=== PATIENT | male | born 1960 | race African-American/Black ===

== ENCOUNTER 2017-10-13 05:15 | Inpatient (IN) | payer OTHER ==
[2017-10-13] VITALS (13 sets, daily range): BP systolic 107–132; BP diastolic 63–85
[~2017-10-13] VITALS: Ht 188 cm; Wt 102.5 kg
[2017-10-13] MEDS ORDERED: BENAZEPRIL-HCT1 EAC2 ORAL (06:12)
[2017-10-13] MEDS ORDERED: Vancomycin 1gm inj IVPB ONE (06:47)
[2017-10-13] MEDS ORDERED: Heparin 5000 units/ml inj ONE (06:48)
[2017-10-13] MEDS ORDERED: Bupivacaine 0.5% Inj 30 ml vial INJ ONE (06:48)
[2017-10-13] MEDS ORDERED: Thrombin 5000 units TOPIC ONE ×2 (06:48→06:50)
[2017-10-13] MEDS ORDERED: Bacitracin 50000 Units Vial ONE (06:49)
[2017-10-13] MEDS ORDERED: Lidocaine 1% Plain 30 ml INJ ONE (06:52)
[2017-10-13] MEDS ORDERED: Lidocaine 1% MPF 10mg/ml 5ml ONE (06:53)
[2017-10-13] MEDS ORDERED: Propofol 200mg/20ml IV ONE ×4 (06:53→13:33)
[2017-10-13] MEDS ORDERED: Midazolam 2mg/2ml Inj ONE (06:54)
[2017-10-13] MEDS ORDERED: fentaNYL 100 mcg/2 mL IV ONE (06:54)
[2017-10-13] MEDS ORDERED: Sodium Chloride 10ml vial INJ ONE (06:56)
[2017-10-13] MEDS ORDERED: Sterile Water Irrig 1000ml IRRIG ONE (07:00)
[2017-10-13] MEDS ORDERED: LR 1000ml ONE (07:00)
[2017-10-13] MEDS ORDERED: NS Irrig 1000ml ONE (07:00)
[2017-10-13] MEDS ORDERED: ceFAZolin sod 2 GM in D5W 110 ML IVPB ONE (07:00)
[2017-10-13] MEDS ORDERED: Zemuron 50mg/5ml Inj IV ONE (07:08)
--- NOTE | 2017-10-13 07:24 | Pre-Procedure Note/Attestation ---
Pre-Procedure Note/Attestation Complete Prior to Procedure Planned Procedure: not applicable Procedure Narrative: Stage 1 Anterior Lumbar interbody fusion of L5S1 with bmp Stage 2 Posterior laws laminectomy pedicle screw fixation of L5S1 and Right sided L45 microdiscectomy Indications for Procedure Pre-Operative Diagnosis: L5S1 hnp L45 hnp Attestation I attest that I discussed the nature of the procedure; its benefits; risks and complications; and alternatives (and the risks and benefits of such alternatives ), prior to the procedure, with the patient (or the patient's legal communications representative). I attest that, if there was a reasonable possibility of needing a blood transfusion, the patient (or the patient's legal communications representative) was given the [place] [facility] standardized written summary, pursuant to the García Evangelina Blood Safety Act ([place] Health and Safety Code # 1645, as amended). I attest that I re-evaluated the patient just prior to the surgery and that there has been no change in the patient's H&P, except as documented below: Guillermo Mcclure MD Oct 13, 2017 07:24
--- NOTE | 2017-10-13 07:28 | Brief Operative Note ---
Immediate Post Operative Note Operative Note Chief Complaint: hnp L45 5S1 Pre-op Diagnosis: L5S1 hnp L45 hnp Procedure: Stage 1 Anterior Lumbar interbody fusion of L5S1 with bmp Stage 2 Posterior laws laminectomy pedicle screw fixation of L5S1 and Right sided L45 microdiscectomy Post-op Diagnosis: same as pre-op Findings: consistent w/pre-op dx studies Surgeon: Kami Fan Mail Clerk: Heidy Anesthesia: general Specimen: none Complications: none Condition: stable Fluids: ivf Estimated Blood Loss: minimal Drains: none Implant(s) used?: Yes - synthes screws, nusaima castaneda sz 14 and screwsx4 Guillermo Mcclure MD Oct 13, 2017 07:28
[2017-10-13] MEDS ORDERED: Metoclopramide 10mg/2ml Inj IVP PRN (07:30)
[2017-10-13] MEDS ORDERED: HYDROcodone/Acetamin 7.5/325 tab ORAL PRN (07:30)
[2017-10-13] MEDS ORDERED: Naloxone 0.4mg/ml Inj IVP PRN (07:30)
[2017-10-13] MEDS ORDERED: Milk of Magnesia 30ml Ud ORAL PRN (07:30)
[2017-10-13] MEDS ORDERED: Chloraseptic Spray 20mL Bottle ORAL PRN (07:30)
[2017-10-13] MEDS ORDERED: Norco 5mg/325mg tab ORAL PRN (07:30)
[2017-10-13] MEDS ORDERED: ePHEDrine 50mg/ml Inj ONE (07:46)
[2017-10-13] MEDS ORDERED: Phenylephrine 10mg/ml Vial ONE (07:53)
[2017-10-13] MEDS ORDERED: LR 1000ml 1,000 ML IVLG SCH (08:16)
[2017-10-13] MEDS ORDERED: Hydromorphone 0.5mg/0.5ml inj IVP PRN (08:30)
[2017-10-13] MEDS ORDERED: LORazepam Inj 2mg/ml 1ml IV PRN (08:30)
[2017-10-13] MEDS ORDERED: DiphenhydrAMINE 50mg/ml Inj IVP PRN (08:30)
[2017-10-13] MEDS ORDERED: Meperidine 50mg/ml Inj(FOR RIGORS ONLY) IVP SCH (08:30)
--- NOTE | 2017-10-13 08:30 | Anethesia Preoperative Eval ---
Anesthesia Pre-op PMH/ROS General Date of Evaluation: Oct 13, 2017 Time of Evaluation: 07:00 Anesthesiologist: Oneyda ASA Score: ASA 2 Mallampati Score Class I : Soft palate, uvula, fauces, pillars visible Class II: Soft palate, uvula, fauces visible Class III: Soft palate, base of uvula visible Class IV: Only hard plate visible Mallampati Classification: Class II Surgeon: Kami Diagnosis: Back pain Surgical Procedure: ALIF & PLIF L5-S1, L4-5 microdiscectomy Anesthesia History: PONV Family History: no anesthesia problems Allergies: Coded Allergies: No Known Allergies (Unverified , 08/27/17) Past Medical History Cardiovascular: Reports: HTN, arrhythmia - RBBB; Denies: CAD, HI, valve dz, other Pulmonary: Reports: other - Bronchitis; Denies: asthma, COPD, LEONILA Gastrointestinal/Genitourinary: Denies: GERD, CRI, ESRD, other Neurologic/Psychiatric: Denies: dementia, CVA, depression/anxiety, TIA, other Endocrine: Denies: DM, hypothyroidism, steroids, other HEENT: Denies: cataract (L), cataract (R), glaucoma, [place] (L), [place] (R), other Hematology/Immune: Denies: anemia, DVT, bleeding disorder, other Musculoskeletal/Integumentary: Denies: OA, RA, DJD, DDD, edema, other PMH Narrative: HTN PSxH Narrative: AP, right shoulder Anesthesia Pre-op Phys. Exam Physician Exam Last Vital Signs Date Time Temp Pulse Resp B/P (MAP) Pulse Ox O2 Delivery O2 Flow Rate FiO2 10/13/17 06:01 97.1 90 18 131/85 97 Room Air 97.1 Constitutional: NAD Neurologic: CN 2-12 intact Cardiovascular: RRR, no M/R/G Respiratory: CTA Gastrointestinal: S/NT/ND Airway Exam Mallampati Score: Class II MO: full ROM: full Teeth: intact Anesthesia Pre-op A/P Labs WNL Studies Pre-op Studies: EKG - SR, RBBB, LHB, CXR - NAD, other - Myocardial perfusion is normal during stress and at rest Risk Assessment & Plan Assessment: Hypertensive male for ALIF and PLIF Plan: GETA, SedLine Pre-Antibiotics Drug: Ancef Given Within 1 Hr of Incision: Yes Time Given: 07:30 García Call MD Oct 13, 2017 08:30
--- NOTE | 2017-10-13 08:31 | Immediate Post-Op Evaluation ---
Immediate Post-Op Evalulation Immediate Post-Op Evalulation Procedure: ALIF and PLIF zL5-S1, microdiscectomy Date of Evaluation: Oct 13, 2017 Time of Evaluation: 14:15 IV Fluids: 2600 Estimated Blood Loss: 350 Urinary Output: 200 Blood Pressure Systolic: 136 Blood Pressure Diastolic: 62 Pulse Rate: 100 Respiratory Rate: 10 O2 Sat by Pulse Oximetry: 99 Temperature (Fahrenheit): 98.6 Pain Score (1-10): 2 Nausea: No Vomiting: No Complications No complication Patient Status: awake, patent, extubated, none Hydration Status: adequate Drug: Ancef Given Within 1 Hr of Incision: Yes Time Given: 07:30 García Call MD Oct 13, 2017 08:31
[2017-10-13] MEDS ORDERED: EPINEPHrine 1mg/1ml Amp ONE (09:53)
[2017-10-13] MEDS ORDERED: Metoprolol 5mg/5ml Inj ONE (13:36)
--- NOTE | 2017-10-13 14:41 | Diagnostic Imaging Report ---
Indication: Pain in low back and right lower extremity greater than left lower extremity, intraoperative Technique: Intraoperative images Comparison: none Findings: Intraoperative images demonstrate surgical tool projected at what is presumably L5-S1, subsequent placement of anterior and posterior fusion hardware at L5-S1. Impression: Intraoperative imaging, as described
[2017-10-13] MEDS ORDERED: D5W 55 ML IV ONE (14:55)
[2017-10-13] MEDS: NS w/KCl 20mEq 1,000 ML IV SCH ×2 (16:27→23:54)
[2017-10-13] MEDS: ceFAZolin sod 1 GM in D5W 55 ML IV SCH ×2 (16:27→23:54)
[2017-10-13] MEDS: Morphine Sulfate 4mg/ml Inj SUBQ PRN ×3 (16:28→23:53)
--- NOTE | 2017-10-13 17:00 | Operative Note - Dictated ---
DATE OF OPERATION: 10/13/2017 SURGEONS: 1. Jony Moody M.D. (for the approach). 2. Guillermo Mcclure M.D. (for the spine procedure). ANESTHESIOLOGIST: García Call M.D. ANESTHESIA: General endotracheal. PREOPERATIVE DIAGNOSIS: Disk disease at L5-S1 (1 interspace). POSTOPERATIVE DIAGNOSIS: Disk disease at L5-S1 (1 interspace). OPERATIVE PROCEDURE: 1. Muscle sparing anterior abdominal extraperitoneal approach for anterior lumbar interbody fusion of the L5-S1 (1 interspace). 2. Mobilization of left iliac artery. 3. Mobilization of left iliac vein. 4. Exposure of the anterior surface of the spine at L5-S1 (1 interspace). INFORMED CONSENT: The procedure of anterior access for an anterior lumbar interbody fusion was explained in detail to the patient preoperatively via the phone and then repeated in the preoperative holding area on the day of surgery. The risks including hemorrhage, infection, vascular injury, ureteral injury, visceral injury, nerve injury, retrograde ejaculation, and lymphedema were explained in detail to the patient. The patient stated that he understood the procedure, its rationale and risks. He stated that he had no further questions and accepted the procedures outlined above. BACKGROUND INFORMATION: Indications for surgery, description of operative findings, and specimens removed will be contained in Dr. Mcclure's operative report. FINDINGS PERTINENT TO THE APPROACH: All retroperitoneal structures were normal. OPERATIVE PROCEDURE: The patient was brought to the operating room in stable condition. Monitoring was instituted with arterial line, ECG, O2 saturation monitor, and blood pressure cuff. A pulse oximeter was placed on the left foot to monitor circulation to the left lower extremity. The patient was induced with anesthesia without any difficulty. The patient was prepared and draped in sterile fashion. Using x-ray and fluoroscopy, the level of the L5-S1 disc was marked on the skin. The left lower quadrant transverse incision was performed from the midline to the edge of the rectus muscle starting approximately [address] between the pubis and umbilicus. The incision was carried down through the subcutaneous tissue to the rectus fascia. The rectus fascia was incised with the cautery with extension into the fibers of the external oblique aponeurosis. Elevation of the rectus fascia away from the anterior surface of the muscle was carried out for approximately 5 cm, both cephalad and caudad. This allowed for retraction of the rectus muscle both medially and laterally to obtain direct A-P access to the spine. The inferior epigastric vessels were identified and preserved. Transversalis fascia was entered exposing the retroperitoneum. The peritoneum was bluntly dissected away from the undersurface of the internal oblique muscle. Careful blunt dissection was used to elevate the peritoneum anteriorly until the psoas muscle was identified. The ureter was also identified and swept upwards with the peritoneum and its contents. Further dissection was used to expose the anterior surface of the left common iliac artery. A Escobedo retractor was placed into the retroperitoneum, lateral to the rectus muscle. A lap sponge was inserted over the psoas muscle and pushed superiorly to keep the abdominal contents out of the way with a Clay retractor. Careful sharp and blunt dissection was used to expose the entire length of the common iliac artery to its origin at the aortic bifurcation. Dissection along the medial wall of the artery was carried out to expose the left common iliac vein, which lies under and slightly to the right of the artery. With extreme care, the vein was exposed in its entirety and deep dissection carried out to expose the L5-S1 disc space. The middle sacral vessels were carefully ligated and cauterized proximally and distally and transected. Any other venous tributaries in the area were controlled with clips and/or cautery and transected. Mobilization of the iliac vessels below the bifurcation was carried out for proper visualization of the anterior surface of the spine. This was done with careful blunt dissection to peel away the left common iliac vein from the anterior longitudinal ligament to which it is very closely approximated. This dissection along the anterior surface of the spine was carried out bluntly without the use of cautery to preserve the sympathetic plexus, which lies anteriorly overlying the aortic bifurcation and extends inferiorly towards the sacral hollow. After proper skeletonization and mobilization of the vessels and preservation of all vital structures, the Escobedo-Clay retractor combination was removed and the table-held retractor system was deployed. The retractor blades were inserted with a rectus muscle now retracted laterally, first on the right to expose that side of the disc space and then on the left to keep the iliac vessels out of the way. A third retractor blade was placed inferiorly. The midline and level was confirmed by placing a needle into the disc and using fluoroscopy. A fourth superior retractor blade was placed. This allowed complete exposure and direct A-P approach to the anterior surface of the spine at L5-S1. Dr. Mcclure proceeded to perform the diskectomy, partial vertebrectomy and fusion using the appropriate technique and hardware. After the diskectomy and fusion was completed, irrigation with antibiotic solution was carried out. The retractor blades were removed and the integrity of the iliac vessels was checked to make sure that there was no tear or thrombosis of the vein and that there was adequate flow through the artery, with no evidence of spasm or thrombosis. A further check for hemostasis was made and the integrity of the ureter was verified. The peritoneum was allowed to return to its normal anatomic position. The anterior rectus sheath was closed with a continuous suture of #1 Vicryl. A subcuticular/subdermal suture of continuous 2-0 Vicryl was used to approximate the subcutaneous tissue and skin. Steri-Strips and a sterile dressing were applied. Manual and visual sweeps were correct. Final sponge, needle, and instrument counts were verified as correct x2. The estimated blood loss from the procedure was minimal and approximately 30 mL. There were excellent dorsalis pedis and posterior tibial pulses in both feet. There was 100% oxygen saturation with a triphasic waveform on the left foot pulse oximeter, consistent with preoperative baseline. The patient remained in the operating room, under anesthesia, in stable condition and prepared for the posterior portion of the procedure. Jony Moody M.D. DR: EVE JOB#: [id number] CC: Guillermo Mcclure M.D.; Fax#: [phone] [facility]
[2017-10-13] MEDS: Docusate 100mg cap ORAL SCH (17:12)
[2017-10-13] MEDS: HYDROcodone/Acetamin 7.5/325 tab ORAL PRN (20:59)
--- NOTE | 2017-10-13 21:15 | Operative Note - Dictated ---
NOTE: "POOR AUDIO QUALITY" DATE OF OPERATION: 10/13/2017 Stage 1 of 2. SURGEON: Guillermo Mcclure M.D., Orthopaedic Spine Surgeon. EXPOSURE SURGEON: Jony Moody M.D. ANESTHESIA: General endotracheal anesthesia. PREOPERATIVE DIAGNOSES: 1. Intractable back pain. 2. Intractable leg pain. 3. Worsening radiculopathy. 4. Weakness. 5. Herniated nucleus pulposus, L5-S1 herniation. 6. Neural foraminal stenosis, L5-S1 herniation. POSTOPERATIVE DIAGNOSES: 1. Intractable back pain. 2. Intractable leg pain. 3. Worsening radiculopathy. 4. Weakness. 5. Herniated nucleus pulposus, L5-S1 herniation. 6. Neural foraminal stenosis, L5-S1 herniation. PROCEDURES PERFORMED: 1. Radical anterior lumbar intervertebral L5-S1 discectomy. 2. Anterior lumbar interbody fusion using NuVasive PEEK cage size 14 mm and bone morphogenetic protein with allograft [place] putty bone. 3. Anterior lumbar plating and fixation at L5-S1 using #4 screws of25 mm length. 4. Anterior retroperitoneal exposure. 5. Supervision and interpretation of intraoperative fluoroscopy. 6. Supervision and interpretation of somatosensory-evoked potential and free-running EMG monitoring. ESTIMATED BLOOD LOSS: 150 mL. COMPLICATIONS: None. INDICATIONS FOR THE PROCEDURE: The patient is a 57-year-old male who presents for intractable back pain and radiculopathy which is well documented in our clinical chart and records. We had a long discussion with [place] regarding definitive surgical treatment options. We had a long discussion with the patient regarding the risks, alternatives, and benefits of procedure. Our description of the risks included a discussion in person as well as a signed consent which detailed all pertinent risks and the procedure itself. Briefly, our discussion included but was not limited to infection, bleeding, pseudarthrosis, spinal cord injury, neurovascular injury, dural tear, CSF leak, neuropathy, paralysis, permanent weakness/drop foot, paresthesias, blindness, palsy and weakness. The patient understood there may be a need for revision surgery or additional procedures. Approach-related complications including dysphonia, dysphagia, blindness, permanent vocal cord and neural injury, hematoma, swallowing and breathing difficulty; medical complications including liver, kidney, shock, and cardiopulmonary failure; anesthesia complications including , swelling, damage to the musculature, larynx , esophagus, trachea, blood vessels and muscles and lungs during this surgical procedure. Injury to deeper structures may be temporary or permanent. The patient understood these and elected to proceed. A written and verbal consent was given. We discussed the pros and cons of all the alternatives. We discussed the uncertainties associated with the decision. Afterwards I assessed the patients understanding and explored their preferences. All questions were answered and no guarantees were given. Medical clearance was obtained prior to surgery. OPERATIVE FINDINGS: A broad-based disc herniation at L5-S1 was encountered, which encroached on the thecal sac and neural foraminal elements therein. This L5-S1 disc was acute in nature and not calcified. It was mobile and free floating and resected easily. There was also neural foraminal stenosis at L5-S1. DESCRIPTION OF PROCEDURE: Under the benefit of general endotracheal anesthesia and with the assistance of the entire operative team, the patient was moved from the rrocky comfort onto the operative table in the supine position on a radiolucent frame. The head was secured and positioned appropriately. Bilateral arms were secured with Gel Pads and foam and all bony prominences were padded. The bilateral lower extremity SCD and KEVIN hose were placed for DVT prophylaxis. A surgical timeout was called which corroborated our planned procedure. Preoperative antibiotics were administered within 30 minutes of the incision for prophylaxis. Using lateral radiography, the operative levels were delineated. An incision was marked based on our interpretation of lateral radiography and afterwards the body was prepped and draped in the usual sterile manner. The family was notified that we were ready to commence surgery and were called in the waiting room hourly for updates. An incision was based on our lateral fluoroscopic image to center the incision at the L5-S1 interspace. The wound was prepped and draped in the usual sterile fashion. Using a scalpel, a standard retroperitoneal exposure was performed by our vascular surgeon, Dr. Jony Moody and this is delineated in a separate operative note. After appropriate exposure at the L5-S1 disc space, we next turned our attention towards our radical discectomy. This was performed in standard fashion first beginning with a gentle mobilization of all superficial soft tissue overlying the disc space with Kittners. After this was performed, we marked our midline and confirmed our disc space on AP and lateral fluoroscopy. Next, using a #10 blade long-handled scalpel, the disc was resected from the endplates in a box discectomy technique. Next using Hardin elevators, the disc was mobilized off each endplate. After this, using a large Leksell rongeur, the entire disc was removed from the intervertebral space. All residual disc and cartilaginous endplates were resected using a combination of small and medium curettage, pituitaries, size 4 and size 6 Kerrison rongeurs. Next, the endplates were distracted in a parallel fashion using the Duane deckhand maintenance and a 7.5 T-handle. At this point, the PLL was resected using a small curette and a Kerrison 4 rongeur. Next the endplates were resected down to bleeding subchondral bone using a ring and box curette. For any residual bleeding which we encountered at this point, this was maintained and controlled with a combination of FloSeal, Gelfoam, and bipolar cautery. Afterwards, Tisseel was used to seal the discectomy site dorsally. Next I then trialed the interspace for height, width, and depth. This was confirmed on fluoroscopy and once satisfied with our fit, we loaded and inserted a NuVasive PEEK cage size #14 with bone morphogenetic protein and with allograft [place] bone under AP and lateral fluoroscopy. AP and lateral fluoroscopy confirmed excellent placement at the L5-S1 interspace. Afterwards, we turned our attention towards plating from the nuvasive system. This anterior lumbar plating and fixation at L5-S1 using #4 screws of 25 mm length. Final radiographs confirmed appropriate placement of all hardware, screws, and our PEEK cage along with a orthodox of the lumbar lordosis. Afterwards, Tisseel was used to seal the discectomy site ventrally. FloSeal and Zosyn antibiotics were placed directly on the anterior fusion site. The wounds were copiously irrigated with antibiotic-impregnated saline. Afterwards, FloSeal was placed to address residual bleeding. Powdered antibiotics were directly poured into the wound to provide for direct antibiosis. Next, I turned my attention to closure. Fascial closure was performed with 1-0 Vicryl suture. Subcutaneous tissues were reapproximated with 2-0 Vicryl. The superficial subcutaneous skin was closed with a running Monocryl and Dermabond. Dressings consisted of Tegaderm and 4 x 4 gauze. The patient tolerated the procedure well and after discussion with our vascular surgeon and our anesthesiologist, we made the determination to proceed with stage 2 of 2 our posterior-based approach. The details of stage 1 of the surgery were related to the patients family/representatives upon the conclusion of the procedure in the family waiting room. Stage 2 of 2. DATE OF OPERATION: 10/13/2017 SURGEON: Guillermo Mcclure M.D., Orthopaedic Spine Surgeon. MATERIAL HANDLER SURGEON: Jony Moody M.D. ANESTHESIA: General endotracheal anesthesia. PREOPERATIVE DIAGNOSES: 1. Intractable back pain. 2. Intractable leg pain. 3. Worsening radiculopathy. 4. Weakness. 5. Herniated nucleus pulposus, L5-S1 herniation. 6. Neural foraminal stenosis, L5-S1. POSTOPERATIVE DIAGNOSES: 1. Intractable back pain. 2. Intractable leg pain. 3. Worsening radiculopathy. 4. Weakness. 5. Herniated nucleus pulposus, L5-S1 herniation. 6. Neural foraminal stenosis, L5-S1. PROCEDURES PERFORMED: 1. Right-sided Mccord laminectomy/Le-Jauregui osteotomy, and complete facetectomy at L5-S1. 2. Left-sided L4-L5 microdiscectomy. 3. Left-sided L5-S1 hemilaminotomy foraminotomy. 4. L5-S1 posterolateral fusion using allograft bone, local autograft, and residual bone morphogenetic protein. 5. Percutaneous pedicle screw fixation at L5-S1 using Synthes screws of 40 mm length of 6.5 mm diameter. 6. Confirmation of pedicle screws placement using neural monitoring. 7. Use of intraoperative microscope. 8. Supervision and interpretation of intraoperative fluoroscopy. 9. Supervision and interpretation of somatosensory-evoked potential 10. and free-running EMG monitoring. ESTIMATED BLOOD LOSS: 150_ mL. COMPLICATIONS: None. INDICATIONS FOR THE PROCEDURE: The patient is a 57-year-old male who presents for stage 2 in regard to their intractable back pain and radiculopathy. This operative note details the second stage of our surgery. Prior to surgery, we had a long discussion with Bill regarding definitive surgical treatment options. We had a long discussion with the patient regarding the risks, alternatives, and benefits of procedure. Our description of the risks included a discussion in person as well as a signed consent which detailed all pertinent risks and the procedure itself. Briefly, our discussion included but was not limited to infection, bleeding, pseudarthrosis, spinal cord injury, neurovascular injury, dural tear, CSF leak, neuropathy, paralysis, permanent weakness/drop foot, paresthesias, blindness, palsy and weakness. The patient understood there may be a need for revision surgery or additional procedures. Approach-related complications including dysphonia, dysphagia, blindness, permanent vocal cord and neural injury, hematoma, swallowing and breathing difficulty; medical complications including liver, kidney, shock, and cardiopulmonary failure; anesthesia complications including , swelling, damage to the musculature, larynx, esophagus, trachea, blood vessels and muscles and lungs during this surgical procedure. Injury to deeper structures may be temporary or permanent. The patient understood these and elected to proceed. A written and verbal consent was given. We discussed the pros and cons of all the alternatives. We discussed the uncertainties associated with the decision. Afterwards I assessed the patients understanding and explored their preferences. All questions were answered and no guarantees were given. This now delineates the second stage of the procedure. OPERATIVE FINDINGS: A significant amount of neural foraminal encroachment along the thecal sac and neural foraminal elements therein. This neural foraminal stenosis at L5-S1 was more than appreciated on the MRI. At the right side at L45 there was a disc fragement noted to be posterior to the confines of the PLL. This was causing neruoforaminal impingement on the neural elements. DESCRIPTION OF PROCEDURE: Under the benefit of general endotracheal anesthesia and with the assistance of the entire operative team, the patient was moved from the radiolucent operative table in the prone position onto a Jules frame. The head was secured and positioned appropriately. Bilateral arms were secured with Gel Pads and foam and all bony prominences were padded. The bilateral lower extremity SCD and KEVIN hose we replaced for DVT prophylaxis. A surgical timeout was called which corroborated our planned procedure. Preoperative antibiotics were administered within 30 minutes of the incision for prophylaxis. Using lateral radiography, the operative levels were delineated. An incision was marked based on our interpretation of anterior, posterior, and lateral radiography and afterwards the body was prepped and draped in the usual sterile manner. The family was notified that we were ready to commence surgery and were called in the waiting room hourly for updates. An incision was based on our anterior, posterior, and lateral fluoroscopic image to center the incision at the L5-S1 interspace. The wound was prepped and draped in the usual sterile fashion. Using a scalpel, a midline incision was made and the subcutaneous tissue was mobilized so that within the fascia, two Izabella-based incisions were made, one incision on the left side focusing on his pedicle at L5-S1 through a percutaneous stab wound approach. All pedicles were cannulated in the exact same fashion for each level. This was performed in the following manner. The second incision was made slightly off midline and geared towards his L5-S1 interspace approached. Using Jamshidi needles under direct AP and lateral fluoroscopic visualization, I approached the L5-S1 pedicles with Jamshidi needles making sure to leave clearance along the medial pedicle boundary/wall, and next we advanced our bilateral pedicle screw entry points under AP and lateral fluoroscopy at both our pedicles bilaterally. Next, we turned our attention to our Le-Jauregui type osteotomy, facetectomy, and decompression. This was performed at each level in the exact same fashion. Based on AP and lateral fluoroscopy, we centered this incision over the facet joints at L5-S1 of the contralateral side. This was taken down through the skin and subcutaneous tissues until the overlying pars facet joints of L5-S1 were visualized under microscopic visualization. There was severe pressure on this neural foramina as palpated with the Harper dental and a Bell ball probe. The pars was then visualized on the contralateral side and this was carefully resected along with the lamina and superior articular process using a Respicardia Vishal AM8 drill bit. This was completely resected using a Le-Jauregui type osteotomy and medial laminar removal and facetectomy. There was a significant amount of bleeding which we encountered at this point and this was maintained and controlled with a combination of FloSeal, Gelfoam, and bipolar cautery. After complete resection of the facet joints on the right, we noticed the lateral thecal sac margin and the neural elements . Next, I turned my attention to the stimulation of pedicle screws. All pedicle screws were stimulated with somatosensory evoked potentials ranging over 20 milliampere with no response. Afterwards percutaneous rods from the Synthes pedicle screw system were inserted and placed percutaneously and locking caps were placed. Next, percutaneous screws were loaded on the right hand side . Screws were inserted in percutaneous fashion and afterwards these screws were stimulated. Next, a eliezer was lordosed and placed percutaneously through the incision. Next I turned my attention towards a left sided L5S1 hemilaminotomy foraminotomy. This was performed in standard fashion using midas vishal drill bit, pituitaries and kerrison rongeurs. a complete and thorough decompression was performed. Next I turned my attention towards a right sided L4L5 hemilaminotomy foraminotomy and microdiscectomy. This was performed in standard fashion using midas vishal drill bit, pituitaries and kerrison rongeurs. a complete and thorough decompression was performed. Afterwards the microdiscectomy was performed using a 15 blade to remove the large disc herniation which had fragmented and torn through the PLL. This fragment was mobilized and removed using a narrow pituitary. The disc space was irrigated and all residual loose fragments were resected. Final radiographs confirmed appropriate placement of all hardware, screws, and our PEEK cages along with a orthodox of the lumbar lordosis. The wounds were copiously irrigated with antibiotic-impregnated saline. Afterwards, FloSeal was placed to address residual bleeding. Powdered antibiotics were directly poured into the wound to provide for direct antibiosis. Next I turned my attention to closure. Fascial closure was performed with 1-0 Vicryl suture. Subcutaneous tissues were reapproximated with 2-0 Vicryl. The superficial subcutaneous skin was closed with a running Monocryl and Dermabond. Dressings consisted of Tegaderm and 4 x 4 gauze. The patient tolerated the procedure well and will now be admitted to the spine floor for further observation. The details of the entire surgery were related to the patients family/representatives upon the conclusion of the procedure in the family waiting room. Guillermo Mcclure M.D. DR: Raymundo JOB#: [id number] CC: KATHARINE
[2017-10-14] VITALS (7 sets, daily range): BP systolic 102–133; BP diastolic 58–81
[2017-10-14] MEDS: Morphine Sulfate 4mg/ml Inj SUBQ PRN ×4 (03:13→20:56)
[2017-10-14] MEDS: ceFAZolin sod 1 GM in D5W 55 ML IV SCH (08:07)
[2017-10-14] MEDS: Docusate 100mg cap ORAL SCH ×2 (08:23→17:12)
[2017-10-14] MEDS: NS w/KCl 20mEq 1,000 ML IV SCH ×2 (10:08→22:07)
--- NOTE | 2017-10-14 10:44 | 48 Hour Post Anesthesia Eval ---
Post Anesthesia Evaluation Procedure: ALIF and PLIF zL5-S1, microdiscectomy Date of Evaluation: Oct 14, 2017 Time of Evaluation: 14:20 Blood Pressure Systolic: 129 0: 77 Pulse Rate: 113 Respiratory Rate: 18 Temperature (Fahrenheit): 99.3 O2 Sat by Pulse Oximetry: 95 Airway: patent Nausea: No Vomiting: No Pain Intensity: 4 Hydration Status: adequate Cardiopulmonary Status: Stable Mental Status/LOC: patient returned to baseline Follow-up Care/Observations: As per surgery Post-Anesthesia Complications: No anesthetic complication Follow-up care needed: N/A García Call MD Oct 14, 2017 10:44
[2017-10-14] MEDS: HYDROcodone/Acetamin 7.5/325 tab ORAL PRN ×2 (13:43→19:18)
--- NOTE | 2017-10-14 16:10 | Consultation ---
History of Present Illness General Date patient seen: Oct 14, 2017 Present Illness HPI 57 year old male with hx of L5S1 hnp L45 herniated nucleus pulposus, [place] [facility] [place] Lumbar interbody fusion of L5S1 with bmp Stage 2 Posterior laws laminectomy pedicle screw fixation of L5S1 and Right sided L45 microdiscectomy. Post operatively pt is admitted to surgical floor for post op care. Allergies: Coded Allergies: No Known Allergies (Unverified , 08/27/17) Medication History Scheduled Benazepril/Hydrochlorothiazide (Benazepril-Hctz 20-25 Mg Tab), 1 TAB ORAL DAILY, (Reported) Patient History Healthcare decision maker KWABENA Resuscitation status Full Code Advanced Directive on File No Past Medical/Surgical History Past Medical/Surgical History: (1) HNP (herniated nucleus pulposus), lumbar Review of Systems All Other Systems: negative except mentioned in HPI Physical Exam General Appearance: WD/WN Lines, tubes and drains: peripheral HEENT: normocephalic Neck: non-tender, normal alignment Respiratory/Chest: chest wall non-tender, normal breath sounds Breasts: no masses Cardiovascular/Chest: normal peripheral pulses, normal rate Abdomen: normal bowel sounds Genitourinary/Rectal: normal genital exam Last 24 Hour Vital Signs Date Time Temp Pulse Resp B/P (MAP) Pulse Ox O2 Delivery O2 Flow Rate FiO2 10/14/17 12:00 98.6 110 18 116/81 98 Room Air 98.6 10/14/17 10:44 210.7 113 18 95 10/14/17 08:00 99.3 113 18 129/77 95 Room Air 99.3 10/14/17 04:41 98.3 114 17 125/65 96 98.3 10/14/17 00:10 98.2 91 16 118/78 100 98.2 10/13/17 21:18 98.1 97 18 114/75 100 98.1 10/13/17 18:00 91 20 107/63 100 Nasal Cannula 4.0 10/13/17 17:31 98.6 10/13/17 17:01 98.6 10/13/17 16:30 86 20 121/76 100 Nasal Cannula 4.0 Intake and Output 10/13/17 10/14/17 19:00 07:00 Intake Total 2700 ml 1140 ml Output Total 1100 ml 1400 ml Balance 1600 ml -260 ml Intake Oral 240 ml IV Total 2700 ml 900 ml Output Urine Total 750 ml 1400 ml Estimated Blood Loss 350 ml # Voids 2 Height (Feet): 6 Height (Inches): 2.00 Weight (Pounds): 226 Medications Current Medications Medications (Trade) Dose Ordered Sig/Dale Route PRN Reason Start Time Stop Time Status Last Admin Dose Admin Acetaminophen (Tylenol) 650 mg Q4H PRN ORAL headache or temp>101 10/13/17 07:30 11/12/17 07:29 Acetaminophen/ Hydrocodone Bitart ([place] 5/325) 1 tab Q3H PRN ORAL pain score 1-3 10/13/17 07:30 10/20/17 07:29 Acetaminophen/ Hydrocodone Bitart ([place] 7.5/325) 1 tab Q3H PRN ORAL pain score 4-6 10/13/17 07:30 10/20/17 07:29 Acetaminophen/ Hydrocodone Bitart ([place] 7.5/325) 2 tab Q3H PRN ORAL pain scale 7-10 10/13/17 07:30 10/20/17 07:29 10/14/17 13:43 Carisoprodol (Soma) 350 mg TIDPRN PRN ORAL SPASM 10/13/17 07:30 11/12/17 07:29 10/14/17 10:07 Cetylpyridinium Chloride (Cepacol) 1 lozg EVERY 2 HOURS PRN LEÓN To Patient Comfort 10/13/17 07:30 11/12/17 07:29 Docusate Sodium (Colace) 100 mg TWICE A DAY ORAL 10/13/17 18:00 11/12/17 17:59 Magnesium Hydroxide (Mom) 30 ml QIDPRN PRN ORAL Constipation 10/13/17 07:30 11/12/17 07:29 Metoclopramide HCl (Reglan) 10 mg Q6H PRN IVP Nausea & Vomiting 10/13/17 07:30 11/12/17 07:29 Morphine Sulfate (Morphine Sulfate) 4 mg Q3H PRN SUBQ Severe Pain (Pain Scale 7-10) 10/13/17 07:30 10/20/17 07:29 10/14/17 07:22 Morphine Sulfate (Morphine Sulfate) 4 mg Q4H PRN SUBQ Moderate Pain (Pain Scale 4-6) 10/13/17 07:30 10/20/17 07:29 10/14/17 08:57 Naloxone HCl (Narcan) 0.1 mg PRN PRN IVP RR<12/min, pt unarousable 10/13/17 07:30 11/12/17 07:29 Ondansetron HCl (Zofran) 4 mg Q6H PRN IVP Nausea & Vomiting 10/13/17 07:30 11/12/17 07:29 Phenol/Menthol (Chloraseptic) 1 spray Q3H PRN ORAL To Patient Comfort 10/13/17 07:30 11/12/17 07:29 Prochlorperazine (Compazine) 10 mg Q6H PRN IVP Nausea & Vomiting 10/13/17 07:30 11/12/17 07:29 Sodium Chloride 1,000 ml @ 100 mls/hr Q10H IV 10/13/17 16:30 11/12/17 16:29 10/14/17 10:08 Temazepam (Restoril) 15 mg HSPRN PRN ORAL Insomnia 10/13/17 07:30 10/20/17 07:29 Assessment/Plan Problem List: (1) HNP (herniated nucleus pulposus), lumbar ICD Codes: M51.26 - Other intervertebral disc displacement, lumbar region SNOMED: 952995729 Assessment/Plan post op care pain management dvt prophylaxis symptomatic treatment. Mayo Barraza MD Oct 14, 2017 16:10
[2017-10-14] MEDS ORDERED: Morphine Sulfate 4mg/ml Inj SUBQ PRN (16:30)
[2017-10-15] MEDS: HYDROcodone/Acetamin 7.5/325 tab ORAL PRN ×3 (03:49→12:45)
[2017-10-15 04:00] VITALS: BP 117/80
[2017-10-15 08:00] VITALS: BP 132/76
[2017-10-15] MEDS: Docusate 100mg cap ORAL SCH (08:08)
[2017-10-15] MEDS: NS w/KCl 20mEq 1,000 ML IV SCH (08:09)
[2017-10-15] MEDS ORDERED: NORCO 10-325 T1 EACH ORAL (12:20)
--- NOTE | 2017-10-16 10:49 | Discharge Summary ---
Discharge Summary Discharge Summary _ DATE OF ADMISSION: 10/13/2017 DATE OF DISCHARGE: 10/15/2017 CO-SURGEON: Dr. Jony Moody CONSULTANTS: Dr. Mayo Barraza BRIEF HOSPITAL COURSE: Patient is a 57-year-old male, who had intractable back and leg pain with worsening radiculopathy and weakness, diagnosed with herniated nucleus pulposus and neural foraminal stenosis on L5-S1, was admitted on 10/13/2017 and underwent radical anterior lumbar intervertebral L5-S1 discectomy by Dr. Mcclure , assisted by Dr. Moody performing anterior muscle-sparing and anterior abdominal extraperitoneal approach for L5 to S1 interspace. He tolerated procedure well and postoperatively was admitted for postop care and pain management. He was initially on clear liquid diet. He was given PT and OT. He was placed on SCDs for DVT prophylaxis. Diet was advanced. Aly catheter was discontinued and was voiding well. He was ambulating well with PT, with good pain control. He was eventually cleared for discharge to follow-up as outpatient. FINAL DIAGNOSES: 1. Intractable back pain 2. Intractable leg pain 3. Worsening radiculopathy 4. Weakness 5. Herniated nucleus pulposus, L5-S1 herniation 6. Neural foraminal stenosis, L5-S1 herniation 7. Status post radical anterior lumbar intervertebral fusion L5-S1 (Refer to operative report) DISPOSITION: Patient was discharged home. DISCHARGE MEDICATIONS: Refer to Discharge Medication List. DISCHARGE INSTRUCTIONS: Follow up within a week. I have been assigned to dictate discharge summary on this account, and I was not involved in the patient's management. Summer Martinez NP Oct 16, 2017 10:49
== END 2017-10-15 14:33 | disposition home or self-care (01) | DRG 460 ==
LOC: SDSOVERFLO 05:15 → 3E 15:24
PROC: 3E0U0GB Introduction of Recombinant Bone Morphogenetic Protein into Joints, Open Approach (ICD-10-PCS; 2017-10-13)
PROC: 0SG30AJ Fusion of Lumbosacral Joint with Interbody Fusion Device, Posterior Approach, Anterior Column, Open Approach (ICD-10-PCS; 2017-10-13)
PROC: 4A11X4G Monitoring of Peripheral Nervous Electrical Activity, Intraoperative, External Approach (ICD-10-PCS; 2017-10-13)
PROC: 0SG00A0 Fusion of Lumbar Vertebral Joint with Interbody Fusion Device, Anterior Approach, Anterior Column, Open Approach (ICD-10-PCS; principal; 2017-10-13 07:00)
PROC: 4A11X4G Monitoring of Peripheral Nervous Electrical Activity, Intraoperative, External Approach (ICD-10-PCS; principal; 2017-10-13 07:00)
PROC: 0ST40ZZ Resection of Lumbosacral Disc, Open Approach (ICD-10-PCS; principal; 2017-10-13 07:00)
PROC: 3E0U0GB Introduction of Recombinant Bone Morphogenetic Protein into Joints, Open Approach (ICD-10-PCS; principal; 2017-10-13 07:00)
PROC: 0ST20ZZ Resection of Lumbar Vertebral Disc, Open Approach (ICD-10-PCS; principal; 2017-10-13 07:00)
PROC: 0SH304Z Insertion of Internal Fixation Device into Lumbosacral Joint, Open Approach (ICD-10-PCS; principal; 2017-10-13 07:00)
DX: M51.17 Intervertebral disc disorders with radiculopathy, lumbosacral region (principal); M43.27 Fusion of spine, lumbosacral region; M48.07 Spinal stenosis, lumbosacral region; M51.16 Intervertebral disc disorders with radiculopathy, lumbar region
CPT/HCPCS: 36415; 72020; 76001; 86850; 86900; 86901; 87081; 94003; 94150; J2250; J2370; J2405